=== PATIENT | female | born 1995 | race American Indian/Alaskan Native ===

== ENCOUNTER 2018-05-19 20:07 | Outpatient (CLI) | payer OTHER, MEDICAID ==
[2018-05-19 22:22] VITALS: BP 111/65
== END 2018-05-19 22:49 | disposition home or self-care (01) ==
LOC: TRG 20:07
PROVIDERS: ATTEND Obstetrics & Gynecology
DX: O47.03 False labor before 37 completed weeks of gestation, third trimester (principal); Z3A.28 28 weeks gestation of pregnancy
CPT/HCPCS: 59025

== ENCOUNTER 2018-06-09 19:06 | Outpatient (CLI) | payer OTHER, MEDICAID ==
[2018-06-09] MEDS ORDERED: LACTATED RINGERS 1,000 ML ONE (19:54)
[2018-06-09] MEDS ORDERED: LACTATED RINGERS 1,000 ML IV ONE (20:04)
[2018-06-09 20:07] VITALS: BP 109/67
[2018-06-09 20:19] LABS: Bacteria,Urine 4+ /HPF (Negative); Bilirubin,Urine NEG (Negative); Blood,Urine SM (Negative); Color,Urine Yellow (Yellow); Mucus,Urine FEW /HPF; Protein,Urine <15 mg/dL mg/dL (Negative); Urobilinogen,Urine < 2.0 mg/dL (<2.0)
== END 2018-06-09 21:25 | disposition home or self-care (01) ==
LOC: TRG 19:06
PROVIDERS: ATTEND Obstetrics & Gynecology
DX: O46.93 Antepartum hemorrhage, unspecified, third trimester (principal); Z3A.31 31 weeks gestation of pregnancy
CPT/HCPCS: 59025; 81001; 96360; J7120

== ENCOUNTER 2018-08-07 22:51 | Inpatient (IN) | payer BC, MEDICAID ==
[2018-08-08 00:33] LABS: Bilirubin,Urine NEG (Negative); Blood,Urine NEG (Negative); Color,Urine Colorless (Yellow); Protein,Urine <15 mg/dL mg/dL (Negative); Urobilinogen,Urine < 2.0 mg/dL (<2.0)
[2018-08-08] MEDS ORDERED: LACTATED RINGERS 1,000 ML ONE (01:09)
--- NOTE | 2018-08-08 02:10 | Ultrasound Report ---
PROCEDURE: Ultrasound biophysical profile without nonstress test. TECHNIQUE: Sonographic evaluation for breathing, movement, tone, and amniotic flui d volume was performed. HISTORY: , cardiac decelerations. COMPARISONS: None. FINDINGS: FETUS Amniotic fluid volume 2 . breathin . movement: 2 . tone: 2 . Score: 8 of 8 . IMPRESSION: Normal biophysical profile . This document is electronically signed by Darin Angela MD., August 08 2018 02:08:23 AM ET
[2018-08-08] MEDS ORDERED: LACTATED RINGERS 1,000 ML IV ONE (02:13)
--- NOTE | 2018-08-08 02:13 | Ultrasound Report ---
PROCEDURE: Limited abdominal ultrasound. TECHNIQUE: Real-time limited sonographic examination was performed for evaluation of each fetus with image documentation (1 or more fetuses). HISTORY: , cardiac decelerations. Evaluate amniotic fluid volume. COMPARISONS: None. FINDINGS: There is a single viable fetus in cephalic presentation. Cardiac activity is documented at 152 bpm. T he amniotic fluid volume appears normal. The amniotic fluid index measures 7.1 cm. The placenta is an terior in location. IMPRESSION: Single viable fetus in cephalic presentation. Normal amniotic fluid index. This document is electronically signed by Darin Angela MD., August 08 2018 02:11:00 AM ET
[2018-08-08 03:36] LABS: Hematocrit 31.4 % (30.3-42.9); Hemoglobin 9.8 gm/dl (10.1-14.3); Mean Corpuscular HGB Conc 31 % (30-34); Platelet Count 324 K/mm3 (140-440); Red Blood Count 5.09 M/mm3 (3.65-5.03)
[2018-08-08 03:49] LABS: Mean Corpuscular Volume 62 fl (79-97); Red Cell Distribution Width 21.7 % (13.2-15.2)
[2018-08-08] MEDS ORDERED: LACTATED RINGERS 1,000 ML IV SCH ×2 (04:00→08:00)
--- NOTE | 2018-08-08 07:08 | History and Physical Report ---
History of Present Illness Date of examination: 08/08/18 Date of admission: 08/08/18 04:15 Chief complaint: contractions, admitted for nonreassuring FHT History of present illness: EDC Confirmation: 08/09/2018 Past History : 1 Term Births: 0 Premature Births: 0 Living Children: 0 Para: 0 Mult. Births: 0 Prev : 0 Prev. attempt? 0 Aborta: 0 Elect. Ab: 0 Spont. 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 Hx of GC/Chl Past Medical History Abnormal PAP: negative JUNIOR Exposure: negative Infertility: negative Uterine Anomaly: negative Uterine Surgery (not C/S): negative Other Gynecologic Problems: negative Social Hx: Patient is single Smoking History: Patient has never smoked. Infection History Hx of STD: chlamydia Varicella/Chicken Pox Status: Immunized Infection History Comments: Pt reports HSV +, hx of GC/Chl Genetic History Congenital Heart Defect: Mom: no Dad: no Grant Disease: Mom: no Dad: no Thalassemia Mom: no Dad: no Neural Tube Defect Mom: no Dad: no Down's Syndrome Mom: no Dad: no Edwin-Sachs Mom: no Dad: no Sickle Cell Disease/Trait Mom: no Dad: no Hemophilia Mom: no Dad: no Muscular Dystrophy Mom: no Dad: no Cystic Fibrosis Mom: no Dad: no [place] Chorea Mom: no Dad: no Mental Retardation Mom: no Dad: no Fragile X Mom: no Dad: no Other Genetic/Chromosomal Disorder Mom: no Dad: no Child w/other defect Mom: no Dad: no Enviromental Exposures Enviromental Exposures Reviewed Xray Exposure: no Medication, drug, or alcohol use since LMP: no Chemical/Other Exposure: no Exposure to Cat Liter: no Hx of Parvovirus (Fifth Disease): no Occupational Exposure to Children: none Active Medications (reviewed today): None Current Allergies (reviewed today): No known allergies Past History Past Medical History: other (see HPI) Past Surgical History: other (see HPI) [employer] History: herpes Family/Genetic History: other (see HPI) - Obstetrical History Expected Date of Delivery: 08/09/18 Actual Gestation: 39 Week(s) 6 Day(s) : 1 Para: 0 Hx # Term Pregnancies: 0 Number of Pregnancies: 0 Spontaneous Abortions: 0 Induced : 0 Number of Living Children: 0 Medications and Allergies Allergies Allergy/AdvReac Type Severity Reaction Status Date / Time milk Allergy Nausea Verified 05/30/14 07:14 Home Medications Medication Instructions Recorded Confirmed Last Taken Type Pnv 29-1 Tablet 1 tab PO DAILY 06/09/18 08/08/18 1 Day Ago History ~08/07/18 Valacyclovir HCl [Valtrex] 1,000 mg PO QDAY 08/08/18 08/08/18 08/07/18 History Active Meds: Active Medications Lactated Ringer's (Lactated Ringers) 1,000 mls @ 125 mls/hr IV DIRECT RALPH Last Admin: 08/08/18 06:37 Dose: 125 mls/hr Documented by: Review of Systems All systems: negative - Vital Signs Vital signs: Vital Signs Pulse BP Pulse Ox 80 117/57 98 08/07/18 23:34 08/07/18 23:34 08/07/18 23:34 Temp Pulse Resp BP Pulse Ox 97.3 F L 84 22 104/54 100 08/08/18 03:35 08/08/18 03:39 08/08/18 03:35 08/08/18 03:39 08/08/18 03:21 - Physical Exam Breasts: Positive: normal Cardiovascular: Regular rate Lungs: Positive: Clear to auscultation, Normal air movement Abdomen: Positive: normal appearance, soft Genitourinary (Female): Positive: normal external genitalia (no lesions/signs of HSV outbreak. ), normal perenium Vulva: both: normal Vagina: Positive: normal moisture Uterus: Positive: normal size - Obstetrical FHR: category 1 Uterine Contraction Monitor Mode: External Cervical Dilatation: 5 Cervical Effacement Percentage: 80 station: -2 Uterine Contraction Frequency (min): 3-5 Uterine Contraction Duration: 60 Uterine Contraction Pattern: Regular Uterine Tone Measurement Phase: Contraction Uterine Contraction Intensity: Moderate Results Result Diagrams: 08/08/18 01:30 Abnormal lab results 08/08/18 08/08/18 Range/Units 00:00 01:30 RBC 5.09 H (3.65-5.03) M/mm3 Hgb 9.8 L (10.1-14.3) gm/dl MCV 62 L (79-97) fl MCH 19 L (28-32) pg RDW 21.7 H (13.2-15.2) % Ur Specific [place] 1.002 L (1.003-1.030) All other labs normal. Assessment and Plan 23y/o @ 39+6, tracing non-reassuring upon admission: BPP 8/8, PAULIE 7.1. FHT now Cat 1 but several late decels noted. Plan to admit and augment labor. Admission orders in EMR. Anticipate delivery. - Patient Problems (1) 39 weeks gestation of Current Visit: Yes Status: Acute (2) Non-reassuring electronic monitoring tracing Current Visit: Yes Status: Acute Plan to address problem: Cont monitoring Augmentation w/pitocin, cervix changed from 2.5 to 5 since arrival. GBS negative (3) HSV (herpes simplex virus) infection Current Visit: Yes Status: Acute Plan to address problem: no lesions Pt denies s/s impending outbreak
[2018-08-08] MEDS ORDERED: XYLOCAINE 2% INFILTRATI ONE (07:10)
[2018-08-08] MEDS ORDERED: BRETHINE SUB-Q PRN (07:10)
[2018-08-08] MEDS ORDERED: ZOFRAN IV PRN (07:10)
[2018-08-08] MEDS ORDERED: PITOCin/NS 20 UNIT/1000ML DRIP 20 UNITS/1,000 ML BAG IV SCH ×2 (08:00→17:00)
[2018-08-08] MEDS ORDERED: PITOCin/NS 30 UNIT/500ML 30 UNITS/500 ML BAG IV SCH (08:00)
--- NOTE | 2018-08-08 12:13 | Progress Note ---
Assessment and Plan pt doing well, denies need for pain medication. reviewed options. DWP pros and cons of internal monitoring, she agrees with placement. placed without difficulty. RN to titrate pitocin as needed for adequate labor. anticipate - Patient Problems (1) 39 weeks gestation of Current Visit: Yes Status: Acute (2) Non-reassuring electronic monitoring tracing Current Visit: Yes Status: Acute (3) HSV (herpes simplex virus) infection Current Visit: Yes Status: Acute Subjective - Subjective Date of service: 08/08/18 Principal diagnosis: IUP @ 39+6, laboring Interval history: EDC Confirmation: 08/09/2018 Past History : 1 Term Births: 0 Premature Births: 0 Living Children: 0 Para: 0 Mult. Births: 0 Prev : 0 Prev. attempt? 0 Aborta: 0 Elect. Ab: 0 Spont. 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 Hx of GC/Chl Past Medical History Abnormal PAP: negative JUNIOR Exposure: negative Infertility: negative Uterine Anomaly: negative Uterine Surgery (not C/S): negative Other Gynecologic Problems: negative Social Hx: Patient is single Smoking History: Patient has never smoked. Infection History Hx of STD: chlamydia Varicella/Chicken Pox Status: Immunized Infection History Comments: Pt reports HSV +, hx of GC/Chl Genetic History Congenital Heart Defect: Mom: no Dad: no Grant Disease: Mom: no Dad: no Thalassemia Mom: no Dad: no Neural Tube Defect Mom: no Dad: no Down's Syndrome Mom: no Dad: no Edwin-Sachs Mom: no Dad: no Sickle Cell Disease/Trait Mom: no Dad: no Hemophilia Mom: no Dad: no Muscular Dystrophy Mom: no Dad: no Cystic Fibrosis Mom: no Dad: no [place] Chorea Mom: no Dad: no Mental Retardation Mom: no Dad: no Fragile X Mom: no Dad: no Other Genetic/Chromosomal Disorder Mom: no Dad: no Child w/other defect Mom: no Dad: no Enviromental Exposures Enviromental Exposures Reviewed Xray Exposure: no Medication, drug, or alcohol use since LMP: no Chemical/Other Exposure: no Exposure to Cat Liter: no Hx of Parvovirus (Fifth Disease): no Occupational Exposure to Children: none Active Medications (reviewed today): None Current Allergies (reviewed today): No known allergies Patient reports: loss of fluid, contractions Objective - Vital Signs Vital Signs: Vital Signs - 12hr 08/08/18 08/08/18 08/08/18 00:16 01:38 01:43 Temperature Pulse Rate 92 H 78 80 Respiratory Rate Blood Pressure 100/59 O2 Sat by Pulse 99 98 99 Oximetry 08/08/18 08/08/18 08/08/18 01:48 01:53 01:58 Temperature Pulse Rate 83 82 84 Respiratory Rate Blood Pressure O2 Sat by Pulse 98 100 100 Oximetry 08/08/18 08/08/18 08/08/18 02:03 02:08 02:17 Temperature Pulse Rate 84 89 103 H Respiratory Rate Blood Pressure O2 Sat by Pulse 100 100 100 Oximetry 08/08/18 08/08/18 08/08/18 02:22 02:27 02:32 Temperature Pulse Rate 89 82 74 Respiratory Rate Blood Pressure O2 Sat by Pulse 100 99 99 Oximetry 08/08/18 08/08/18 08/08/18 02:37 02:42 02:47 Temperature Pulse Rate 82 79 76 Respiratory Rate Blood Pressure O2 Sat by Pulse 100 100 100 Oximetry 08/08/18 08/08/18 08/08/18 02:52 03:01 03:06 Temperature Pulse Rate 78 100 H 81 Respiratory Rate Blood Pressure O2 Sat by Pulse 99 100 100 Oximetry 08/08/18 08/08/18 08/08/18 03:11 03:16 03:21 Temperature Pulse Rate 73 79 84 Respiratory Rate Blood Pressure O2 Sat by Pulse 99 99 100 Oximetry 08/08/18 08/08/18 08/08/18 03:35 03:39 07:24 Temperature 97.3 F L Pulse Rate 84 89 Respiratory 22 Rate Blood Pressure 104/54 92/53 O2 Sat by Pulse Oximetry 08/08/18 08/08/18 08/08/18 07:45 08:27 10:59 Temperature 97.4 F L Pulse Rate 84 77 Respiratory 18 Rate Blood Pressure 97/56 111/65 O2 Sat by Pulse Oximetry - Exam Breasts: normal Cardiovascular: Regular rate Lungs: Clear to auscultation, Normal air movement Abdomen: Present: normal appearance, soft Vulva: both: normal Uterus: Present: normal FHR: category 2 Uterine Contraction Monitor Mode: Internal Cervical Dilatation: 6.5 (IUPC/ISE placed) Cervical Effacement Percentage: 90 station: -1 Uterine Contraction Frequency (min): 2-4 Uterine Contraction Duration: 60 Uterine Contraction Pattern: Regular Uterine Tone Measurement Phase: Contraction Uterine Contraction Intensity: Moderate Extremities: normal Deep Tendon Reflex Grade: Normal +2 - Labs Labs: Abnormal Labs 08/08/18 08/08/18 00:00 01:30 RBC 5.09 H Hgb 9.8 L MCV 62 L MCH 19 L RDW 21.7 H Ur Specific [place] 1.002 L Laboratory Results - last 24 hr 08/08/18 08/08/18 08/08/18 00:00 01:30 01:30 WBC RBC Hgb Hct MCV MCH MCHC RDW Plt Count Urine Color Colorless Urine Turbidity Clear Urine pH 7.0 Ur Specific [place] 1.002 L Urine Protein <15 mg/dl Urine Glucose (UA) Neg Urine Ketones Neg Urine Blood Neg Urine Nitrite Neg Urine Bilirubin Neg Urine Urobilinogen < 2.0 Ur Leukocyte Esterase Tr Urine WBC (Auto) 1.0 Urine RBC (Auto) 2.0 RPR Nonreactive Blood Type A POSITIVE Antibody Screen Negative 08/08/18 01:30 WBC 8.4 RBC 5.09 H Hgb 9.8 L Hct 31.4 MCV 62 L MCH 19 L MCHC 31 RDW 21.7 H Plt Count 324 Urine Color Urine Turbidity Urine pH Ur Specific [place] Urine Protein Urine Glucose (UA) Urine Ketones Urine Blood Urine Nitrite Urine Bilirubin Urine Urobilinogen Ur Leukocyte Esterase Urine WBC (Auto) Urine RBC (Auto) RPR Blood Type Antibody Screen
[2018-08-08] MEDS: SUBLIMAZE IV PRN ×2 (12:47→14:36)
--- NOTE | 2018-08-08 16:10 | Procedure Note ---
OB Delivery Note - Delivery Date of Delivery: 08/08/18 ( female) Talent Assistant: REINIER BLANKENSHIP Estimated blood loss: 300cc - Vaginal Delivery presentation: vertex Delivery position: OA Delivery induction: none Delivery augmentation: rupture of membranes, pitocin Delivery monitor: internal FHT, internal uterine Route of delivery: Delivery placenta: spontaneous Delivery cord: 3 umbilical vessels Episiotomy: none Delivery laceration: none Anesthesia: intravenous Delivery comments: female del KRISTIE over intact perienum, no shoulder dystocia. placed on mother's abdomen for skin to skin. 3 vessel cord clamped and cut. Placenta del intact and complete. pit to IVF. no laceration to repair. Fundus firm, bleeding scant. EBL 300, apgars 8/9, mother and infant bonding well. - A at 1 minute: 8 at 5 minutes: 9 Infant Gender: Female (6#5)
[2018-08-08] MEDS ORDERED: DULCOLAX PR PRN (16:29)
[2018-08-08] MEDS ORDERED: BENADRYL PO PRN (16:29)
[2018-08-08] MEDS ORDERED: TYLENOL PO PRN (16:29)
[2018-08-08] MEDS ORDERED: MILK OF MAGNESIA PO PRN (16:29)
[2018-08-08] MEDS ORDERED: TUCKS PAD TP PRN (16:29)
[2018-08-08] MEDS ORDERED: DERMOPLAST TP PRN (16:29)
[2018-08-08] MEDS ORDERED: PHENERGAN PO PRN (16:29)
[2018-08-08] MEDS ORDERED: LANSINOH TP PRN (16:29)
[2018-08-08] MEDS ORDERED: SODIUM CHLORIDE FLUSH SYRINGE 10 ML IV SCH (17:00)
[2018-08-08] MEDS: COLACE PO SCH (21:45)
[2018-08-08] MEDS: IBUPROFEN PO SCH (21:45)
[2018-08-08] MEDS ORDERED: MINERAL OIL PO PRN (22:00)
[2018-08-09] MEDS: IBUPROFEN PO SCH ×4 (03:26→23:16)
[2018-08-09 05:26] LABS: Hematocrit 26.6 % (30.3-42.9); Hemoglobin 8.1 gm/dl (10.1-14.3)
[2018-08-09] MEDS ORDERED: BOOSTRIX IM ONE (06:00)
[2018-08-09] MEDS: COLACE PO SCH ×2 (09:56→23:16)
[2018-08-09] MEDS: PRENATAL VITAMIN PO SCH (09:56)
--- NOTE | 2018-08-09 10:44 | Discharge Summary ---
Providers - Providers Date of Admission: 08/08/18 04:15 Date of discharge: 08/09/18 (desires d/c home this afternoon) Attending physician: REESE MOTA Primary care physician: REESE MOTA Hospitalization Reason for admission: Labor Condition: Good Pertinent studies: post delivry H&H 8.1/26.6, asymptomatic existing anemia Procedures: Hospital course: uncomplicated and course Disposition: DC-01 TO HOME OR SELFCARE - Discharge Diagnoses (1) (normal spontaneous vaginal delivery) Status: Acute Core Measure Documentation - Palliative Care Palliative Care/ Comfort Measures: Not Applicable - Core Measures Any of the following diagnoses?: none Exam - Constitutional Vitals: Temp Pulse Resp BP Pulse Ox 98.6 F 84 22 106/65 99 08/09/18 07:47 08/09/18 07:47 08/09/18 07:47 08/09/18 07:47 08/09/18 07:47 General appearance: Present: no acute distress, well-nourished - EENT Eyes: Present: PERRL ENT: hearing intact, clear oral mucosa - Neck Neck: Present: supple, normal ROM - Respiratory Respiratory effort: normal Respiratory: bilateral: CTA - Cardiovascular Heart Sounds: Present: S1 & S2. Absent: rub, click - Extremities Extremities: pulses symmetrical, No edema Peripheral Pulses: within normal limits - Abdominal General gastrointestinal: Present: soft, non-tender, non-distended, normal bowel sounds Female genitourinary: Present: normal - Integumentary Integumentary: Present: clear, warm, dry - Musculoskeletal Musculoskeletal: gait normal, strength equal bilaterally - Psychiatric Psychiatric: appropriate mood/affect, intact judgment & insight - Neurologic Neurologic: CNII-XII intact, moves all extremities - Additional findings Additional findings: fundus firm, lochia scant Plan Activity: no restrictions Diet: regular Follow up with: REESE MOTA MD [Primary Care Provider] - 09/09/18 (Congratulations! Please call [phone] to schedule your visit in 4 weeks. Call for any questions or concerns. )
[2018-08-10] MEDS: IBUPROFEN PO SCH (05:38)
[2018-08-10] MEDS: COLACE PO SCH (10:15)
[2018-08-10] MEDS: PRENATAL VITAMIN PO SCH (10:15)
[2018-08-10 15:09] VITALS: BP 113/84
== END 2018-08-10 17:20 | disposition home or self-care (01) | DRG 806 ==
LOC: TRG 22:51 → OBSVTOIN 08-08 04:15 → LD 08-08 04:15 → OB 08-08 17:57
PROVIDERS: ADMIT Obstetrics & Gynecology; ATTEND Obstetrics & Gynecology
PROC: 10E0XZZ Delivery of Products of Conception, External Approach (ICD-10-PCS; principal; 2018-08-08)
PROC: 10H07YZ Insertion of Other Device into Products of Conception, Via Natural or Artificial Opening (ICD-10-PCS; 2018-08-08)
PROC: 3E0234Z Introduction of Serum, Toxoid and Vaccine into Muscle, Percutaneous Approach (ICD-10-PCS; 2018-08-09)
DX: O76 Abnormality in fetal heart rate and rhythm complicating labor and delivery (principal); O98.52 Other viral diseases complicating childbirth; Z37.0 Single live birth; B00.9 Herpesviral infection, unspecified; O90.81 Anemia of the puerperium; Z23 Encounter for immunization; Z3A.39 39 weeks gestation of pregnancy
CPT/HCPCS: 36415; 76815; 76819; 81001; 85014; 85018; 85027; 86592; 86850; 86900; 86901; 96365; 96366; 96375; 96376; G0378; A6250; J2590; J3010; J7120